=== PATIENT | female | born 1960 | race Native Hawaiian/Other Pacific Islander ===

== ENCOUNTER 2018-08-15 14:33 | Outpatient (CLI) | payer OTHER | END 2018-08-15 14:42 | disposition short-term general hospital (02) | LOC: AMB 14:33 | DX: R51 Headache (principal); R11.10 Vomiting, unspecified; R42 Dizziness and giddiness | CPT/HCPCS: A0425; A0427 ==

== ENCOUNTER 2018-08-15 14:47 | Emergency (ER) | payer OTHER ==
[~2018-08-15] VITALS: Ht 157.5 cm; Wt 81.6 kg
[2018-08-15 15:39] LABS: PLATELET COUNT 232 K/uL (152-353)
[2018-08-15 15:57] LABS: POTASSIUM 3.5 mmol/L (3.6-5.2)
[2018-08-15 19:55] VITALS: BP 116/65; TEMP 97.7
== END 2018-08-15 19:50 | disposition home or self-care (01) ==
LOC: ED 14:47
PROVIDERS: Family Medicine
DX: R42 Dizziness and giddiness (principal); E11.9 Type 2 diabetes mellitus without complications; R11.2 Nausea with vomiting, unspecified
CPT/HCPCS: 80053; 81000; 85027; 96374; 96375; 99284; J1815; J2405

== ENCOUNTER 2019-11-24 08:49 | Outpatient (CLI) | payer OTHER | END 2019-11-24 20:11 | disposition home or self-care (01) | LOC: MAMMO 08:49 | DX: Z12.31 Encounter for screening mammogram for malignant neoplasm of breast (principal) ==

== ENCOUNTER 2021-02-04 09:27 | Outpatient (CLI) | payer OTHER | END 2021-02-04 22:04 | disposition home or self-care (01) | LOC: MAMMO 09:27 | PROVIDERS: ATTEND Nurse Practitioner Family | DX: Z12.31 Encounter for screening mammogram for malignant neoplasm of breast (principal) ==

== ENCOUNTER 2022-02-17 08:51 | Outpatient (CLI) | payer OTHER | END 2022-02-17 18:50 | disposition home or self-care (01) | LOC: MAMMO 08:51 | PROVIDERS: ATTEND Nurse Practitioner Family | DX: Z12.31 Encounter for screening mammogram for malignant neoplasm of breast (principal) ==

== ENCOUNTER 2023-06-17 08:40 | Outpatient (CLI) | payer OTHER | END 2023-06-17 19:07 | disposition home or self-care (01) | LOC: MAMMO 08:40 | PROVIDERS: ATTEND Nurse Practitioner Family | DX: Z12.31 Encounter for screening mammogram for malignant neoplasm of breast (principal) ==